=== PATIENT | male | born 1990 | race Caucasian/White ===

== ENCOUNTER 2024-10-11 20:53 | Emergency (ER) | payer SELFPAY ==
[2024-10-11] VITALS (13 sets, daily range): BP systolic 107–144; BP diastolic 63–75; PULSE 91–117; RESP 18–20; O2SAT 80–99; BMI 37.8
--- NOTE | ~2024-10-11 | CT_ITS ---
CLINICAL HISTORY: trauma CT head without contrast Comparison: None provided Findings: No intra-axial mass, midline shift, hydrocephalus, or acute hemorrhage. No significant atrophy-like change or white matter disease. The visualized paranasal sinuses and mastoid air cells are normal. The orbits are unremarkable. Left parietal scalp hematoma. There is no acute fracture. IMPRESSION: 1. No acute intracranial findings. This document has been electronically signed by: Rachid Amezcua MD, PHD on 10/12/2024 00:03:54
--- NOTE | ~2024-10-11 | CT_ITS ---
CLINICAL HISTORY: trauma ,Pt unable to cooperate, best possible images obtained CT cervical spine without contrast Comparison: None provided Findings: Motion artifact degrades some of the provided images. There is straightening of the normal cervical lordosis. No significant degenerative change. No acute fractures or dislocations. Visualized intracranial contents are unremarkable. No cervical fluid collections or masses. No consolidation or effusion at the lung apices. IMPRESSION: Motion limited cervical spine CT with no acute osseous abnormality identified. This document has been electronically signed by: Rachid Amezcua MD, PHD on 10/12/2024 00:06:53
[2024-10-11 21:17] LABS: MANUAL DIFF FLAG NO
[2024-10-11 21:18] LABS: Hematocrit 42.2 % (42.0-52.0); Hemoglobin 14.8 g/dl (14.0-18.0); Imm Gran Abs Auto 0.03 X10*3/uL (0.00-0.03); Imm Gran Pct Auto 0.3 % (0.0-0.4); Lymphocytes Absolute Auto 3.3 X10*3/uL (1.2-4.9); Mean Corpuscular HGB Conc 35.1 g/dl (31.0-36.0); Mean Corpuscular Hemoglobin 31.2 pg (27.0-33.0); Mean Corpuscular Volume 88.8 fL (80.0-98.0); NRBC Abs Auto 0.000 X10*3/uL (0.0-0.012); NRBC Pct Auto 0.0 /100WBC (0.0-0.2); Platelet Count 234 X10*3/uL (160-400); Red Blood Count 4.75 X10*6/uL (4.60-5.80); White Blood Count 9.0 X10*3/uL (4.8-10.8)
[2024-10-11 21:33] LABS: Anion Gap 19 (12-20); Blood Urea Nitrogen 14 mg/dL (9-16); Calcium 9.0 mg/dL (8.4-10.2); Carbon Dioxide 21 mmol/L (22-29); Chloride 102 mmol/L (96-108); Creatinine Clr Calc Pharmacy 118.6; Estimated Glomerular Filt Rate > 60; Magnesium 2.5 mg/dL (1.6-2.6); Potassium 3.9 mmol/L (3.3-5.1); Sodium 138 mmol/L (135-145)
--- NOTE | 2024-10-11 23:00 | PC.NURSE ---
late entry- pt biba from family wedding. fall backwards witnessed by girlfriend. + LOC + HS denies thinners. pt combative, non compliant with care, agitated, verbally abusive towards staff. im versed 5mg, benadryl 25mg, and haldol 5mg given with security at bedside. pt continues to be verbally abusive towards staff. pt continues removing medical devices pt made aware unsteady gate and not allowed to get out of bed. pt educated on importance of compliance with care by this rn in which pt states fuck off and continued to removed spo2 monitor and give this rn the middle finger. pt continually getting out of bed. @ 2140 pt placed in 4 point restraints by security @2210 pt sleeping @ 2225 four point restraints removed and pt brought to ct scan by this rn, security, and waredresser
[2024-10-11 23:20] LABS: Cannabinoid Screen Urine Not Detected (Not Detect)
--- NOTE | 2024-10-12 | PC.NURSE ---
lorraine booker called pt girlfriend kimberli to make aware of ct results. per pt and pt girlfriend pt sister janet called for sober ride home per lorraine pt safe for discharge
--- NOTE | 2024-10-12 00:12 | ED_ITS ---
HPI - General Adult General Chief complaint: Fall Stated complaint: H/S LOC ETOH Time Seen by Provider: 10/11/24 21:14 Source: patient and EMS Limitations: other (Intoxication) History of Present Illness ED Provider: Katerin Jones PA-C HPI narrative: 34-year-old male presents intoxicated. Patient was at a family wedding, he subsequently fell, there was a positive head strike that was witnessed, he did lose consciousness. History extremely limited from the patient as he is hostile and belligerent, clearly intoxicated. Related Data Allergies Allergy/AdvReac Type Severity Reaction Status Date / Time No Known Allergies Allergy Verified 10/11/24 21:03 Review of Systems 2 Review of Systems: Unable to obtain secondary to intoxication Yes all other systems are reviewed and are negative [facility] Past Medical History Attestation statement: The following information was validated with the patient. Social History Social History Advance Directives: No Advance Directives Information Provided: No Do you have a plan to hurt others: No Plan Physical Exam ED Vital Signs: Vital Signs - 24 hr 10/11/24 21:00 10/11/24 21:30 10/11/24 21:43 Pulse Rate 117 H 105 H 102 H Respiratory Rate 18 Blood Pressure 138/75 144/73 H 108/67 Pulse Oximetry 98 Oxygen Delivery Method Room Air 10/11/24 21:45 10/11/24 22:00 10/11/24 22:15 Pulse Rate 101 H 94 91 Respiratory Rate Blood Pressure 107/69 115/67 116/63 Pulse Oximetry Oxygen Delivery Method BMI result Body Mass Index 37.8 Const Other: Awake, no obvious sign of head trauma on exam Orientation/consciousness: patient oriented x3 HENTX Other: Alcohol halitosis Resp Effort & Inspection: normal respiratory effort Cardio Other: Normal peripheral perfusion Skin Other: Warm dry no rash Neuro Other: Unsteady gait General: patient oriented x3, no focal motor deficits and CN's II-XI intact bilaterally Psych Other: Intoxicated, hostile, belligerent Course Reevaluation(s) Reevaluation #1: The patient is becoming further hostile and belligerent, multiple attempts were made to deescalate his behavior, we are having to medicate him for his safety, and out of necessity to obtain imaging of his brain and cervical spine. Reevaluation #2: The patient still continues to be belligerent, he will not stay in bed, he is a fall risk, we have yet to obtain imaging, we are going to have to physically restrain him for his safety and the safety of staff. Medications Administered Discontinued Medications Generic Name Dose Route Start Last Admin Trade Name Parvin PRN Reason Stop Dose Admin Diphenhydramine HCl 25 mg 10/11/24 21:21 10/11/24 21:25 Diphenhydramine Hcl 50 Mg/Ml Vial IM 10/11/24 21:22 25 mg ONCE ONE Administration Haloperidol Lactate 5 mg 10/11/24 21:21 10/11/24 21:25 Haloperidol Lactate 5 Mg/Ml Vial IM 10/11/24 21:22 5 mg STAT STA Administration Midazolam HCl 5 mg 10/11/24 21:21 10/11/24 21:25 Midazolam Hcl 5 Mg/Ml Vial IM 10/11/24 21:22 5 mg ONCE ONE Administration Medical Decision Making Medical Decision Making MDM Narrative: 34-year-old male presents intoxicated. Patient was at a family wedding, he subsequently fell, there was a positive head strike that was witnessed, he did lose consciousness. History extremely limited from the patient as he is hostile and belligerent, clearly intoxicated. Problem: Intoxication History: Per EMS primarily I have considered the following differential diagnoses: Intracranial hemorrhage, cervical spine injury, intoxication, concussion Plan: The patient is not a reliable historian, he had a positive head strike with loss of consciousness, we are scanning his head and neck. The patient is ambulatory here, I have no suspicion for other fracture or dislocation, we will obtain screening labs including serum ethanol in the event that he sustained an acute injury and requires further intervention. I have independently reviewed the following tests: Labs: No leukocytosis, not anemic, no electrolyte abnormality, serum ethanol 403, U tox positive for benzodiazepine however he was medicated here in the emergency room CT brain:indings: No intra-axial mass, midline shift, hydrocephalus, or acute hemorrhage. No significant atrophy-like change or white matter disease. The visualized paranasal sinuses and mastoid air cells are normal. The orbits are unremarkable. Left parietal scalp hematoma. There is no acute fracture. IMPRESSION: 1. No acute intracranial findings. CT cervical spine:MPRESSION: Motion limited cervical spine CT with no acute osseous abnormality identified. Differential Diagnosis Differential Diagnoses: The differential diagnosis associated with the presentation includes See MDM Admission/Observation Consideration of admission/observation: Escalation of care including admission/observation considered Not applicable Lab Data MDM Lab Attestation statement: I reviewed the patient's lab results. 10/11/24 21:13 10/11/24 21:13 Labs: Lab Results 10/11/24 10/11/24 Range/Units 21:13 23:04 WBC 9.0 (4.8-10.8) X10*3/uL RBC 4.75 (4.60-5.80) X10*6/uL Hgb 14.8 (14.0-18.0) g/dl Hct 42.2 (42.0-52.0) % MCV 88.8 (80.0-98.0) fL MCH 31.2 (27.0-33.0) pg MCHC 35.1 (31.0-36.0) g/dl RDW 13.2 (11.0-16.0) % Plt Count 234 (160-400) X10*3/uL MPV 10.2 (9.4-12.4) fL Immature Gran % (Auto) 0.3 (0.0-0.4) % Neut % (Auto) 49.6 (45-73) % Lymph % (Auto) 36.9 (20-40) % [place] % (Auto) 10.0 (2-11) % Eos % (Auto) 2.4 (0-4) % Baso % (Auto) 0.8 (0-2) % Lymph # (Auto) 3.3 (1.2-4.9) X10*3/uL [place] # (Auto) 0.9 (0.1-1.2) X10*3/uL Eos # (Auto) 0.2 (0.0-0.4) X10*3/uL Baso # (Auto) 0.1 (0.0-0.2) X10*3/uL Abs Immat Gran (auto) 0.03 (0.00-0.03) X10*3/uL Absolute Neuts (auto) 4.5 (2.0-8.3) x10*3/uL Absolute Nucleated RBC 0.000 (0.0-0.012) X10*3/uL Nucleated RBC % (auto) 0.0 (0.0-0.2) /100WBC Sodium 138 (135-145) mmol/L Potassium 3.9 (3.3-5.1) mmol/L Chloride 102 (96-108) mmol/L Carbon Dioxide 21 L (22-29) mmol/L Anion Gap 19 (12-20) BUN 14 (9-16) mg/dL Creatinine 1.25 (0.5-1.4) mg/dL Estim Creat Clear Calc 118.6 Estimated GFR > 60 Random Glucose 110 (60-115) mg/dL Calcium 9.0 (8.4-10.2) mg/dL Magnesium 2.5 (1.6-2.6) mg/dL Urine Opiates Screen Not Detected (Not Detect) Ur Buprenorphine Scrn Not Detected (Not Detect) ng/mL Ur Oxycodone Screen Not Detected (Not Detect) ng/mL Urine Methadone Screen Not Detected (Not Detect) ng/mL Urine Fentanyl Screen Not Detected (Not Detect) Ur Barbiturates Screen Not Detected (Not Detect) Ur Phencyclidine Scrn Not Detected (Not Detect) Ur Amphetamines Screen Not Detected (Not Detect) U Benzodiazepines Scrn POSITIVE H (Not Detect) Urine Cocaine Screen Not Detected (Not Detect) U Marijuana (THC) Screen Not Detected (Not Detect) Ethyl Alcohol 403 H* mg/dL Radiology Impression Discussion of test interpretation with radiology: I have reviewed the radiologist's reading. Independent Historian Clinical information obtained from an independent historian. History obtained from or confirmed by: Spouse and EMS Critical Care Time Critical Care Time Critical Care Time: Yes Total Critical Care Time: 30 Attestation: I Katerin Jones personally performed 30 minutes critical care time not including lines and procedures; medical restraints/chemical restraint, physical restraint, deescalation tactics Discharge Plan Discharge Clinical Impression: Alcohol intoxication, Concussion with loss of consciousness Patient Disposition: Home, Self-Care Instructions: Concussion (ED), Alcohol Intoxication (ED) Additional Instructions: Imaging of your head and cervical spine were obtained, there were no acute injuries. You may have sustained a concussion. See home care instructions. You were found to be extremely intoxicated, your blood alcohol level was significantly elevated. You were monitored in the emergency department until we could provide you with a sober ride. Print Language: Macedonian
[2024-10-12 00:20] VITALS: BP 112/66; PULSE 97; RESP 18; TEMP 36.3; O2SAT 94
[2024-10-12 00:40] VITALS: BP 112/66; PULSE 97; RESP 18; TEMP 36.3; O2SAT 94
--- NOTE | 2024-10-12 00:40 | PC.NURSE ---
pt sister called for safe ride home. security assisted in discharge of pt pt utilized wc at discharge pt provided belongings at discharge pt discharged in care of sister and friend assisted into car by security
--- NOTE | 2024-10-12 02:49 | PC.NURSE ---
Addendum entered by Jhoana Moreira RN 10/12/24 02:58: late entry Original Note: pt remains unsteady on feet pt remains verbally abusive towards staff pt continues to remove medical equipment pt redirected and educated on importance of staying in bed. pt states I need to fucking pee security and molder closed molds assisting pt with use of urinal made pt aware pt is too unsafe to walk to restroom to which pt states I'll piss all over the floor then lorraine security molder closed molds and sitter at bedside
== END 2024-10-12 00:40 | disposition home or self-care (01) ==
PROVIDERS: Emergency Provider Emergency Medicine
DX: S09.90XA Unspecified injury of head, initial encounter (principal); M54.2 Cervicalgia; R51.9 Headache, unspecified; F10.129 Alcohol abuse with intoxication, unspecified; X58.XXXA Exposure to other specified factors, initial encounter; Y93.9 Activity, unspecified; Y92.9 Unspecified place or not applicable; Y99.8 Other external cause status; Y90.8 Blood alcohol level of 240 mg/100 ml or more; Z51.81 Encounter for therapeutic drug level monitoring
CPT/HCPCS: 36415; 70450; 72125; 80048; 80307; 83735; 85025; 96372; 99284; 99285; J1200; J1630; J2250

== ENCOUNTER → 2024-10-11 21:14 | Outpatient (BNV) | payer SELFPAY | PROVIDERS: Emergency Provider Emergency Medicine; Visit Provider General Practice | DX: S06.0X9A Concussion with loss of consciousness of unspecified duration, initial encounter (principal); W19.XXXA Unspecified fall, initial encounter | CPT/HCPCS: 70450; 72125 ==